=== PATIENT | female | born 1960 | race Caucasian/White ===

== ENCOUNTER 2018-06-08 10:46 | Emergency (ER) | payer MEDICARE, OTHER ==
[~2018-06-08] VITALS: Ht 175.3 cm; Wt 79.4 kg
[2018-06-08] MEDS ORDERED: FLEXERIL PO (11:02)
[2018-06-08] MEDS ORDERED: AMITRIPTYLINE H50 M2 PO (11:02)
[2018-06-08] MEDS ORDERED: PRAVACHOL40 MG PO (11:02)
[2018-06-08] MEDS ORDERED: LISINOPRIL10 MG PO (11:03)
[2018-06-08] MEDS ORDERED: EULEXIN 125 MG125 MG PO (11:03)
[2018-06-08] MEDS ORDERED: ASPIR 8181 MG PO (11:04)
[2018-06-08] MEDS ORDERED: HYDROCODON-ACE1 EAC7 PO (11:04)
[2018-06-08 11:20] LABS: HEMATOCRIT 42.1 % (37.0-47.0); MCH 31.7 pg (26.0-34.0); MCHC 33.3 g/dL (28.0-37.0); MPV 8.5 fl. (7.2-11.1); NUCLEATED RBCS 0 /100WBC; PLATELET COUNT* 229 thou/uL (150-400); RBC 4.43 mil/uL (4.20-5.00); RDW-CV 13.9 % (10.5-14.5); WBC 12.6 thou/uL (4.0-11.0)
[2018-06-08] MEDS ORDERED: IBUPROFEN 800800 M1 PO (11:30)
[2018-06-08] MEDS ORDERED: ARAVA20 MG PO (11:30)
[2018-06-08] MEDS ORDERED: PHENERGAN 25 MG25 M1 PO (11:31)
[2018-06-08] MEDS ORDERED: NEURONTIN800 MG PO (11:32)
[2018-06-08 11:33] LABS: ANION GAP 7 mmol/L (7-16); BUN 13 mg/dL (7-18); CALCIUM 8.7 mg/dL (8.5-10.1); CHLORIDE 105 mmol/L (98-107); CO2 30 mmol/L (21-32); CREATININE 0.8 mg/dL (0.6-1.3); GLUCOSE 106 mg/dL (70-99); POTASSIUM 3.8 mmol/L (3.5-5.1); SODIUM 142 mmol/L (136-145)
[2018-06-08 11:42] LABS: ALBUMIN 3.2 g/dL (3.4-5.0); ALKALINE PHOSPHATASE 212 U/L (46-116); NT-PRO BRAIN NAT PEPTIDE 519 pg/mL (<300); SGOT 316 U/L (15-37); SGPT 328 U/L (30-65); TOTAL BILIRUBIN 0.4 mg/dL (<0.1-1.0); TOTAL PROTEIN 6.8 g/dL (6.4-8.2); TROPONIN-I LEVEL <0.06 ng/mL (<0.06)
[2018-06-08 11:50] LABS: ABSOLUTE EOSINOPHILS 0.4 thou/uL (0.0-0.7); ABSOLUTE LYMPHOCYTES 1.4 thou/uL (0.8-5.3); ABSOLUTE MONOCYTES 0.9 thou/uL (0.0-1.2)
[2018-06-08 11:51] LABS: PLATELET ESTIMATE ADEQUATE
[2018-06-08 11:52] LABS: TOXIC GRANULATION 1+
[2018-06-08 13:00] LABS: URINE BILIRUBIN NEGATIVE (Negative); URINE BLOOD NEGATIVE (Negative); URINE CLARITY CLEAR; URINE COLOR YELLOW; URINE GLUCOSE-RANDOM NEGATIVE (Negative); URINE KETONES NEGATIVE (Negative); URINE LEUKOCYTES-REFLEX NEGATIVE (Negative); URINE NITRITE-REFLEX NEGATIVE (Negative); URINE PROTEIN NEGATIVE (Negative); URINE SPECIFIC GRAVITY <= 1.005 (1.005-1.030); URINE UROBILINOGEN 0.2 E.U./dl (0.2-1.0)
[2018-06-08] MEDS ORDERED: ZOFRAN4 MG PO (14:17)
[2018-06-08 14:30] VITALS: BP 133/71
--- NOTE | 2018-06-09 12:15 | EKG ---
[place] [address] ELECTROCARDIOGRAM REPORT Name: JOEL HECK Room: [facility]#: [id number] Admission: 06/08/18 Attend Phys: Discharge: 06/08/18 Date of : 58 Report #: [id number] THIS REPORT FOR: //name// [facility] ED Test Date: 2018-06-08 Test Time: 11:08:58 Pat Name: JOEL HECK Department: Room: Gender: F Nursing Coordinator: : 1960 Requested By: Rosenda Mitchell Order Number: [id number] MD: Marcelino Harley Measurements Intervals [place] Rate: 90 P: 133 ME: 161 QRS: -7 QRSD: 92 T: 126 QT: 359 QTc: 440 Interpretive Statements Sinus rhythm Multiple ventricular premature complexes Abnormal T, consider ischemia, lateral leads No previous ECG available for comparison Electronically Signed On 06-09-2018 12:15:40 GALLERY HOST by Marcelino Harley [email or web address] <ELECTRONICALLY SIGNED> By: Marcelino Harley MD, [facility] 06/09/18 1215 1108 07 Marcelino Harley MD, FACC /EPI
== END 2018-06-08 14:33 | disposition home or self-care (01) ==
LOC: M.ERS 10:46
PROVIDERS: Nurse Practitioner Family
DX: R11.2 Nausea with vomiting, unspecified (principal); R19.7 Diarrhea, unspecified; R94.5 Abnormal results of liver function studies; I10 Essential (primary) hypertension; J44.9 Chronic obstructive pulmonary disease, unspecified; M19.90 Unspecified osteoarthritis, unspecified site; Z90.49 Acquired absence of other specified parts of digestive tract; Z90.710 Acquired absence of both cervix and uterus; Z88.0 Allergy status to penicillin; F17.210 Nicotine dependence, cigarettes, uncomplicated

== ENCOUNTER → 2018-07-03 | Outpatient (CLI) | payer MEDICARE, OTHER ==
[~2018-07-03] MED LIST: AMITRIPTYLINE H50 M2 PO; ARAVA20 MG PO; ASPIR 8181 MG PO; EULEXIN 125 MG125 MG PO; FLEXERIL PO; HYDROCODON-ACE1 EAC7 PO; IBUPROFEN 800800 M1 PO; LISINOPRIL10 MG PO; NEURONTIN800 MG PO; PHENERGAN 25 MG25 M1 PO; PRAVACHOL40 MG PO; ZOFRAN4 MG PO
== END ==
LOC: M.NUC 12:10
DX: K80.20 Calculus of gallbladder without cholecystitis without obstruction (principal)

== ENCOUNTER → 2018-09-13 | Outpatient (CLI) | payer MEDICARE, OTHER ==
[~2018-09-13] MED LIST changes: +PERCOCET 5-3251 EACH PO
== END ==
LOC: M.RAD 10:45 → M.MRI 11:30 → M.RAD 12:11
DX: Z12.31 Encounter for screening mammogram for malignant neoplasm of breast (principal); G93.89 Other specified disorders of brain

== ENCOUNTER 2018-09-25 21:57 | Emergency (ER) | payer MEDICARE, OTHER ==
[~2018-09-25] VITALS: Ht 175.3 cm; Wt 79.4 kg
[~2018-09-25 21:57] MED LIST changes: -PERCOCET 5-3251 EACH PO
[2018-09-25] MEDS ORDERED: PERCOCET 5-3251 EACH PO (23:10)
[2018-09-25 23:32] VITALS: BP 163/104
== END 2018-09-25 23:32 | disposition home or self-care (01) ==
LOC: M.ERS 21:57
DX: S43.492A Other sprain of left shoulder joint, initial encounter (principal); F17.200 Nicotine dependence, unspecified, uncomplicated; I10 Essential (primary) hypertension; J44.9 Chronic obstructive pulmonary disease, unspecified; M06.9 Rheumatoid arthritis, unspecified; M19.90 Unspecified osteoarthritis, unspecified site; Z91.018 Allergy to other foods; Z88.0 Allergy status to penicillin; Z90.49 Acquired absence of other specified parts of digestive tract; Z88.2 Allergy status to sulfonamides; Z90.710 Acquired absence of both cervix and uterus; W18.2XXA Fall in (into) shower or empty bathtub, initial encounter; Y92.89 Other specified places as the place of occurrence of the external cause; Y93.89 Activity, other specified; Y99.8 Other external cause status

== ENCOUNTER → 2018-10-18 | Outpatient (CLI) | payer MEDICARE, OTHER ==
[~2018-10-18] MED LIST changes: +PERCOCET 5-3251 EACH PO
== END ==
LOC: M.ULTRA 13:10
DX: N60.02 Solitary cyst of left breast (principal); Z88.1 Allergy status to other antibiotic agents; Z88.0 Allergy status to penicillin

== ENCOUNTER 2018-12-10 14:48 | Emergency (ER) | payer MEDICARE, OTHER ==
[~2018-12-10] VITALS: Ht 175.3 cm; Wt 80.7 kg
[2018-12-10 15:50] LABS: ABSOLUTE EOSINOPHILS 0.1 thou/uL (0.0-0.7); ABSOLUTE LYMPHOCYTES 1.3 thou/uL (0.8-5.3); ABSOLUTE NEUTROPHILS 11.4 thou/uL (1.6-8.1); BASOPHILS 0.3 %; HEMATOCRIT 43.3 % (37.0-47.0); HEMOGLOBIN 14.4 gm/dL (12.0-15.0); LYMPHOCYTES 9.4 %; MCH 31.7 pg (26.0-34.0); MCHC 33.2 g/dL (28.0-37.0); MCV 95.4 fL (80.0-100.0); MONOCYTES 6.9 %; MPV 7.4 fl. (7.2-11.1); NUCLEATED RBCS 0 /100WBC; PLATELET COUNT* 254 thou/uL (150-400); POLYS 82.4 %; RBC 4.54 mil/uL (4.20-5.00); RDW-CV 13.9 % (10.5-14.5); WBC 13.8 thou/uL (4.0-11.0)
[2018-12-10 15:57] LABS: ANION GAP 7 mmol/L (7-16); BUN 16 mg/dL (7-18); CALCIUM 8.4 mg/dL (8.5-10.1); CHLORIDE 107 mmol/L (98-107); CO2 29 mmol/L (21-32); CREATININE 1.2 mg/dL (0.6-1.3); GLUCOSE 73 mg/dL (70-99); SODIUM 143 mmol/L (136-145)
[2018-12-10 16:06] LABS: ALBUMIN 3.2 g/dL (3.4-5.0); ALKALINE PHOSPHATASE 124 U/L (46-116); SGOT 15 U/L (15-37); SGPT 30 U/L (30-65); TOTAL BILIRUBIN 0.3 mg/dL (<0.1-1.0); TOTAL PROTEIN 6.8 g/dL (6.4-8.2); TROPONIN-I LEVEL <0.06 ng/mL (<0.06)
[2018-12-10] MEDS ORDERED: IPRAT-ALBUT 0.5-3 ML INH (16:17)
[2018-12-10] MEDS ORDERED: MEDROLDOSEPACK PO (16:17)
[2018-12-10] MEDS ORDERED: AZITHROMYCIN500 MG PO (16:17)
[2018-12-10 16:34] VITALS: BP 126/73
--- NOTE | 2018-12-11 11:20 | EKG ---
[place] [address] ELECTROCARDIOGRAM REPORT Name: HECKJOEL [id number] Admission: 12/10/18 Attend Phys: Discharge: 12/10/18 Date of : 58 Report #: [id number] THIS REPORT FOR: //name// [facility] ED Test Date: 2018-12-10 Test Time: 15:31:43 Pat Name: JOEL HECK Department: Room: Gender: F Neuro Ophthalmologist: Polo CHRIS : 1960 Requested By: Shira Roca Order Number: [id number] MD: Carlos Alberto Lenz Measurements Intervals [place] Rate: 98 P: 75 KS: 162 QRS: 24 QRSD: 98 T: 68 QT: 365 QTc: 467 Interpretive Statements Sinus rhythm Left atrial enlargement Borderline T wave abnormalities Compared to ECG 06/08/2018 11:08:58 supraventricular premature complex(es) no longer present T-wave abnormality still present Electronically Signed On 12-11-2018 11:20:38 CDT by Carlos Alberto Lenz [email or web address] <ELECTRONICALLY SIGNED> By: Carlos Alberto Lenz MD, [facility] 12/11/18 1120 1531 1531 Carlos Alberto Lenz MD, [facility] /EPI
== END 2018-12-10 16:37 | disposition home or self-care (01) ==
LOC: M.ERS 14:48
PROVIDERS: Nurse Practitioner Family
DX: J44.1 Chronic obstructive pulmonary disease with (acute) exacerbation (principal); I10 Essential (primary) hypertension; M19.90 Unspecified osteoarthritis, unspecified site; M06.9 Rheumatoid arthritis, unspecified; F17.210 Nicotine dependence, cigarettes, uncomplicated; Z88.0 Allergy status to penicillin; Z88.1 Allergy status to other antibiotic agents; Z88.2 Allergy status to sulfonamides; Z91.018 Allergy to other foods; Z90.710 Acquired absence of both cervix and uterus; Z90.49 Acquired absence of other specified parts of digestive tract

== ENCOUNTER → 2019-02-28 | Outpatient (CLI) | payer MEDICARE, MEDICAID ==
[~2019-02-28] MED LIST changes: +AZITHROMYCIN500 MG PO; +IPRAT-ALBUT 0.5-3 ML INH; +MEDROLDOSEPACK PO
== END ==
LOC: M.RAD 15:12
DX: R05 Cough (principal); R06.2 Wheezing; F17.200 Nicotine dependence, unspecified, uncomplicated